=== PATIENT | female | born 1995 | race Hispanic/Latino ===

== ENCOUNTER 2018-02-08 20:19 | Inpatient (IN) | payer BC ==
[~2018-02-08] VITALS: Ht 151.1 cm; Wt 64.0 kg
--- NOTE | 2018-02-08 22:15 | PR ---
[facility] [address] [facility] [place], [place] [address] Signed Progress Notes IP Datetime Report Generated by CPN: 02/08/2018 22:15 PROGRESS NOTES: [id number] Impression: Normal progression of labor Procedures: Artificial ROM; Sterile Vag Exam Plan: Anesthesia consult Informed Consent Obtain: Vaginal Delivery; Risks, Benefits and Alternatives Discussed VITAL SIGNS: [id number] Vital Signs: Reviewed; Within Normal Limits EXAM: [id number] Dilatation: 5.0 Effacement: 100 Station: -2 Uterine Contractions: q 1 to 3 min MEMBRANES: [id number] Membrane Status: Intact ROM Note: AROM with moderate amount meconium stained fluid Comments: Progressing. Epidural now. Fetus A: [id number] FHR Baseline: 155 Variability: Moderate 6-25bpm Accelerations: 15X15 Decelerations: None FHR Category: Category I Presentation: Vertex Comments on Fetus A: No evidence of metabolic acidosis. Fetus B: [id number] Signing Physician: Jennifer Hu MD Copies: ~ *Electronically Signed* 02/08/18 2215 JENNIFER HU MD PATIENT NAME: ERLINDA HEBERT PROGRESS NOTE DATE OF : [birth year] PHYSICIAN: JENNIFER HU MD RPT #: [id number] REPORT IS CONFIDENTIAL AND NOT TO BE RELEASED WITHOUT AUTHORIZATION
[2018-02-09] MEDS ORDERED: PRENATAL 19 TA1 EAC1 PO (01:49)
[2018-02-09] MEDS ORDERED: IRON325 M1 PO (01:49)
--- NOTE | 2018-02-09 12:43 | PR ---
[facility] [address] [facility] [place], [place] [address] Signed PP Progress Notes Datetime Report Generated by CPN: 02/09/2018 12:43 SUBJECTIVE: [id number] Pain: Within normal limits Vital Signs: [id number] Vital Signs: Reviewed; Within Normal Limits EXAM: [id number] Cardiovascular: Not Done Respiratory: Not Done Abdomen/Uterus: Abnormal Lochia: Normal Vulva/Perineum: Abnormal Breasts: Not Done CVA Tenderness: Not Done Extremities: Normal Incision: Not Applicable Progress: Normal Exam Comments: Fundus firm, NT @ U. Perineum with mild edema only. IMPRESSION/PLAN/PROCEDURES: [id number] Impression: Normal progression Progress Notes: Doing well. Her perineal swelling has decreased and I think akers can be removed. Signing Physician: Jennifer Hu MD Copies: ~ *Electronically Signed* 02/09/18 1243 JENNIFER HU MD PATIENT NAME: ERLINDA HEBERT PROGRESS NOTE DATE OF : [birth year] PHYSICIAN: JENNIFER HU MD RPT #: [id number] REPORT IS CONFIDENTIAL AND NOT TO BE RELEASED WITHOUT AUTHORIZATION
--- NOTE | 2018-02-10 09:39 | PR ---
[facility] [address] [facility] [place], [place] [address] Signed PP Progress Notes Datetime Report Generated by CPN: 02/10/2018 09:39 SUBJECTIVE: [id number] Pain: Within normal limits Pain Comments: more perineal swelling today Vital Signs: [id number] Vital Signs: Reviewed; Within Normal Limits EXAM: [id number] Cardiovascular: Not Done Respiratory: Not Done Abdomen/Uterus: Abnormal Lochia: Normal Vulva/Perineum: Abnormal Breasts: Not Done CVA Tenderness: Not Done Extremities: Normal Incision: Not Applicable Progress: Normal Exam Comments: Fundus firm, NT @ U-1. Perineum with moderate edema H/H 9.2/27.5, WBC 12.8, plat 218k IMPRESSION/PLAN/PROCEDURES: [id number] Impression: Normal progression Other Impression: perineal swelling Plan: Discharge Procedures: None Progress Notes: Doing well though increased perineal edema. She is tolerating this well. I do think she is stable for D/C. Signing Physician: Jennifer Hu MD Copies: ~ *Electronically Signed* 02/10/18 0939 JENNIFER HU MD PATIENT NAME: ERLINDA HEBERT PROGRESS NOTE DATE OF : [birth year] PHYSICIAN: JENNIFER HU MD RPT #: [id number] REPORT IS CONFIDENTIAL AND NOT TO BE RELEASED WITHOUT AUTHORIZATION
== END 2018-02-10 12:23 | disposition home or self-care (01) | DRG 768 ==
LOC: FBCO 20:19 → FBC 21:03
PROVIDERS: ADMIT Obstetrics & Gynecology
PROC: 10E0XZZ Delivery of Products of Conception, External Approach (ICD-10-PCS; principal; 2018-02-08)
PROC: 0DQR0ZZ Repair Anal Sphincter, Open Approach (ICD-10-PCS; 2018-02-08)
PROC: 10907ZC Drainage of Amniotic Fluid, Therapeutic from Products of Conception, Via Natural or Artificial Opening (ICD-10-PCS; 2018-02-08)
PROC: 3E0S3BZ Introduction of Anesthetic Agent into Epidural Space, Percutaneous Approach (ICD-10-PCS; 2018-02-08)
PROC: 00HU33Z Insertion of Infusion Device into Spinal Canal, Percutaneous Approach (ICD-10-PCS; 2018-02-08)
DX: O77.0 Labor and delivery complicated by meconium in amniotic fluid (principal); Z37.0 Single live birth; O70.23 Third degree perineal laceration during delivery, IIIc; Z3A.38 38 weeks gestation of pregnancy; O75.89 Other specified complications of labor and delivery
CPT/HCPCS: 01960; 36415; 85027; J2590; J7060; J7120

== ENCOUNTER 2022-01-07 04:56 | Inpatient (IN) | payer BC ==
[~2022-01-07] VITALS: Ht 152.4 cm; Wt 66.7 kg
[~2022-01-07 04:56] MED LIST: IRON325 M1 PO; PRENATAL 19 TA1 EAC1 PO
--- NOTE | 2022-01-07 06:53 | NUR ---
COVID SWAB DONE TO BOTH NARES AND SENT TO IN HOUSE LAB.
--- NOTE | 2022-01-08 08:03 | PR ---
[facility] [address] [facility] [place], [place] [address] Signed PP Progress Notes Datetime Report Generated by CPN: 01/08/2022 08:02 SUBJECTIVE: [id number] Pain: Within Normal Limits Pain Comments: little sleep Vital Signs: [id number] Vital Signs: Reviewed; Within Normal Limits Cardiovascular: Not Done Respiratory: Not Done Abdomen/Uterus: Abnormal Lochia: Normal Vulva/Perineum: Not Done Breasts: Not Done CVA Tenderness: Not Done Extremities: Normal Incision: Not Applicable Progress: Normal Exam Comments: Fundus firm, NT @ U-1. H/H 10.9/32.6, WBC 15.7, plat 249k IMPRESSION/PLAN/PROCEDURES: [id number] Impression: Normal Progression Other Impression: anemia Plan: Discharge Procedures: None Progress Notes: Doing well. She desires D/C today. Signing Physician: Jennifer Hu MD Copies: ~ *Electronically Signed* 01/08/22801 JENNIFER HU MD PATIENT NAME: ERLINDA LEMOS PROGRESS NOTE DATE OF : [birth year] PHYSICIAN: JENNIFER HU MD RPT #: [id number] REPORT IS CONFIDENTIAL AND NOT TO BE RELEASED WITHOUT AUTHORIZATION
== END 2022-01-08 11:29 | disposition home or self-care (01) | DRG 807 ==
LOC: FBCO 04:56 → FBC 05:20 → FBCO 01-23 11:17
PROVIDERS: ADMIT Obstetrics & Gynecology; ATTEND Obstetrics & Gynecology
PROC: 10E0XZZ Delivery of Products of Conception, External Approach (ICD-10-PCS; principal; 2022-01-07)
PROC: 00HU33Z Insertion of Infusion Device into Spinal Canal, Percutaneous Approach (ICD-10-PCS; 2022-01-07)
PROC: 3E0R3BZ Introduction of Anesthetic Agent into Spinal Canal, Percutaneous Approach (ICD-10-PCS; 2022-01-07)
PROC: 10907ZC Drainage of Amniotic Fluid, Therapeutic from Products of Conception, Via Natural or Artificial Opening (ICD-10-PCS; 2022-01-07)
DX: O24.420 Gestational diabetes mellitus in childbirth, diet controlled (principal); Z37.0 Single live birth; O99.03 Anemia complicating the puerperium; D64.9 Anemia, unspecified; Z67.40 Type O blood, Rh positive; Z20.822 Contact with and (suspected) exposure to COVID-19; Z3A.37 37 weeks gestation of pregnancy
CPT/HCPCS: 36415; 85027; 86850; 86900; 86901; 87502; A9270; J2590; J7121; U0003